=== PATIENT | female | born 2000 | race African-American/Black ===

== ENCOUNTER 2020-07-05 05:30 | Emergency (ER) | payer MEDICAID ==
[~2020-07-05] VITALS: Ht 188 cm; Wt 64.0 kg
[2020-07-05] MEDS ORDERED: LORAZEPAM 2MG/ML CPJ IM STA (07:01)
[2020-07-05 07:11] LABS: BASOPHILS % 0.4 % (0.0-2.0); EOSINOPHILS % 0.8 % (0.0-5.0); HEMATOCRIT. 39.3 % (36.0-48.0); HEMOGLOBIN. 13.4 g/dL (12.0-16.0); LYMPHOCYTES % 15.8 % (20.0-50.0); MEAN CORPUSCULAR HEMOGLOBIN 29.7 pg (28.0-32.0); MEAN PLATELET VOLUME 9.7 fl (7.4-10.4); PLATELET 227 x1000/uL (130-400); RED BLOOD CELL COUNT 4.52 mill/uL (4.2-5.4); RED CELL DISTRIBUTION WIDTH 13.3 % (11.6-14.6)
[2020-07-05 07:18] LABS: CHLORIDE 106 mEq/L (98-107)
[2020-07-05 07:22] LABS: ETHANOL BLOOD 216 mg/dL
[2020-07-05] MEDS ORDERED: POTASSIUM CHLORIDE 20MEQ TABLET SR PO ONE (09:00)
[2020-07-05 11:23] VITALS: BP 110/53
== END 2020-07-05 11:23 | disposition home or self-care (01) ==
LOC: ER 05:30
DX: F10.129 Alcohol abuse with intoxication, unspecified (principal); Y90.7 Blood alcohol level of 200-239 mg/100 ml; E87.6 Hypokalemia; R03.0 Elevated blood-pressure reading, without diagnosis of hypertension; R51.9 Headache, unspecified; S00.81XA Abrasion of other part of head, initial encounter; F91.8 Other conduct disorders; Y04.2XXA Assault by strike against or bumped into by another person, initial encounter; Y93.89 Activity, other specified; Y92.89 Other specified places as the place of occurrence of the external cause; F15.10 Other stimulant abuse, uncomplicated; F13.10 Sedative, hypnotic or anxiolytic abuse, uncomplicated; F12.90 Cannabis use, unspecified, uncomplicated
CPT/HCPCS: 36415; 70450; 80053; 80307; 80320; 80329; 85025; 93005; 99285; Z7610; G0480